=== PATIENT | male | born 1965 | race African-American/Black ===

== ENCOUNTER 2024-02-25 05:55 | Emergency (ER) | payer MEDICARE, OTHER ==
[~2024-02-25] VITALS: Ht 165.1 cm; Wt 75.0 kg
[~2024-02-25 05:55] MED LIST: ASPI-1450 PO; METF-446 PO; METHI10 PO; METO50TA18 PO; SIMV-43 PO; VICOT PO
[2024-02-25 06:03] VITALS: TEMP 98.3
[2024-02-25] MEDS: OxyCODONE HCL/ACETAMINOPHEN 5-325 MG TABLET PO ONE (07:04)
[2024-02-25] MEDS: IBUPROFEN 600 MG TABLET PO ONE (07:04)
[2024-02-25] MEDS ORDERED: IBUP-1492 PO (08:22)
[2024-02-25] MEDS ORDERED: PERCT PO (08:23)
[2024-02-25 09:13] VITALS: BP 160/86; PULSE 85; RESP 16; O2SAT 100
== END 2024-02-25 09:15 | disposition home or self-care (01) ==
LOC: EMS 05:56
DX: R22.41 Localized swelling, mass and lump, right lower limb (principal); E11.9 Type 2 diabetes mellitus without complications; E03.9 Hypothyroidism, unspecified; E78.00 Pure hypercholesterolemia, unspecified; I10 Essential (primary) hypertension; F17.210 Nicotine dependence, cigarettes, uncomplicated; Z79.82 Long term (current) use of aspirin; Z79.84 Long term (current) use of oral hypoglycemic drugs; Z79.899 Other long term (current) drug therapy
CPT/HCPCS: 29505; 82962; 99283